=== PATIENT | male | born 1985 | race African-American/Black ===

== ENCOUNTER 2018-02-16 10:54 | Emergency (ER) | payer OTHER ==
[~2018-02-16] VITALS: Ht 185.4 cm; Wt 102.1 kg
[2018-02-16 12:12] VITALS: BP 148/82
[2018-02-16] MEDS ORDERED: KETOROLAC TROMETH 60MG/2ML VIAL IM ONE (12:30)
== END 2018-02-16 12:58 | disposition home or self-care (01) ==
LOC: ER 10:54
DX: J01.90 Acute sinusitis, unspecified (principal); J03.90 Acute tonsillitis, unspecified; F17.210 Nicotine dependence, cigarettes, uncomplicated
CPT/HCPCS: 70450; 96372; 99284; J1885